=== PATIENT | male | born 1955 | race Caucasian/White ===

== ENCOUNTER 2021-04-03 14:00 | Outpatient (RCR) | payer BC, SELFPAY | END 2021-04-03 15:41 | disposition home or self-care (01) | LOC: ANHDMC 14:00 | PROVIDERS: PCP Physician Assistant; Visit Provider Physician Assistant | DX: E11.9 Type 2 diabetes mellitus without complications (principal); Z79.4 Long term (current) use of insulin; Z71.89 Other specified counseling | CPT/HCPCS: G0108 ==

== ENCOUNTER → 2022-08-24 11:27 | Outpatient (CLI) | payer MEDICARE, SELFPAY ==
--- NOTE | ~2022-08-24 | XR_ITS ---
EXAMINATION: XR abdomen/kub 1V DATE: 08/24/2022 12:06 INDICATION: Personal history of urinary calculi. TECHNIQUE: A supine view of the abdomen on 2 radiographs was obtained. COMPARISON: None. FINDINGS: There are no dilated loops of bowel. There is a 2 mm calcification in left pelvis. There ar e surgical clips in the abdomen. IMPRESSION: 1. 2 mm calcification in left pelvis that may be a phlebolith or stone at the left ureterovesicular j unction. Reviewed, dictated and finalized at location A. S ESTIMATOR IMPRESSION: 1. 2 mm calcification in left pelvis that may be a phlebolith or stone at the l eft ureterovesicular junction.
== END ==
PROVIDERS: PCP Nurse Practitioner Family; Visit Provider Urology
DX: Z87.442 Personal history of urinary calculi (principal)
CPT/HCPCS: 74018